=== PATIENT | female | born 1950 | race Caucasian/White ===

== ENCOUNTER 2016-04-28 11:24 | Day surgery (SDC) | payer MEDICARE, BC ==
--- NOTE | ~2016-04-28 | EGD ---
EGD REPORT [facility] [address] [address] NAME: AUDIE MAHAN : [birth year] STATUS : REG [facility] [place] PAT#: [id number] AGE: 66 ADM/REG DATE : 04/28/16 MR#: [id number] REPORT SERV DATE: 04/28/16 DICTATED BY: HANY HUDSON DATE: 04/28/16 REPORT STATUS : Draft [facility]ANS[facility]: [facility] DATE: 04/28/16 Endoscopy Center Patient Name: Audie Mahan Date of : 1950 Attending MD: HANY HUDSON MD Procedure Date No Time: 04/28/2016 Procedure: Colonoscopy Indications: Iron deficiency anemia, Last colonoscopy: 2007 Referring MD: RASHIDA OJEDA MD Medicines: See the Anesthesia note for documentation of the administered medications Complications: No immediate complications. Procedure: Pre-Anesthesia Assessment: - ASA Grade Assessment: II - A patient with mild systemic disease. After I obtained informed consent, the scope was passed under direct vision. Throughout the procedure, the patient's blood pressure, pulse, and oxygen saturations were monitored continuously. The [id number] was introduced through the anus and advanced to the terminal ileum, with identification of the appendiceal orifice and IC valve. The colonoscopy was performed without difficulty. The patient tolerated the procedure well. The quality of the bowel preparation was adequate. Findings: The perianal and digital rectal examinations were normal. Internal hemorrhoids were found during retroflexion and were small. A few diverticula were found in the sigmoid colon. A sessile polyp was found in the rectum. The polyp was small in size. The polyp was removed with a cold biopsy forceps. Resection and retrieval were complete. Impression: - Internal hemorrhoids. - Diverticulosis in the sigmoid colon. - One small polyp in the rectum. Resected and retrieved. Recommendation: - Patient has a contact number available for emergencies. The signs and symptoms of potential delayed complications were discussed with the patient. Return to normal activities tomorrow. Written discharge instructions were provided to the patient. - Regular diet. - Continue present medications. - Repeat colonoscopy for surveillance based on pathology EGD REPORT [address] [address] NAME: AUDIE MAHAN : [birth year] STATUS : REG [facility] [place] PAT#: [id number] AGE: 66 ADM/REG DATE : 04/28/16 MR#: [id number] REPORT SERV DATE: 04/28/16 DICTATED BY: HANY HUDSON DATE: 04/28/16 REPORT STATUS : Draft TRANSCRIBED BY: [employer] DATE: 04/28/16 results. - FOR YOUR BIOPSY RESULTS: Please go to [email or web address] and register to receive your results via the portal. Your biopsy results will be posted there in about 7 to 10 days. IF you do not see result in 10 days, call office. Procedure Code(s): --- Professional --- 87121, Colonoscopy, flexible, proximal to splenic flexure; with biopsy, single or multiple Diagnosis Code(s): --- Professional --- K64.8, Other hemorrhoids K57.30, Diverticulosis of large intestine without perforation or abscess without bleeding K62.1, Rectal polyp D50.9, Iron deficiency anemia, unspecified CPT copyright 2013 [employer]. All rights reserved. The codes documented in this report are preliminary and upon paraffin machine operator review may be revised to meet current compliance requirements. Hany Hudson MD HANY HUDSON MD 04/28/2016 2:00 PM This report has been signed electronically. Number of Addenda: 0 Note Initiated On: 04/28/2016 1:02 PM Scope Withdrawal Time 0 hours 8 minutes 0 seconds [address] [place] [id number]
--- NOTE | ~2016-04-28 | EGD ---
EGD REPORT [facility] [address] [address] NAME: AUDIE MAHAN : [birth year] [place] [facility] [place] [id number] AGE: 66 ADM/REG DATE : 04/28/16 MR#: [id number] REPORT SERV DATE: 04/28/16 DICTATED BY: HANY HUDSON DATE: 04/28/16 REPORT STATUS : Draft [facility]ED [facility]: [facility] DATE: 04/28/16 Endoscopy Center Patient Name: Audie Mahan Date of : 1950 Attending MD: HANY HUDSON MD Procedure Date No Time: 04/28/2016 Procedure: Upper GI endoscopy Indications: Iron deficiency anemia, Gastro-esophageal reflux disease Referring MD: RASHIDA OJEDA MD Medicines: See the Anesthesia note for documentation of the administered medications Complications: No immediate complications. Procedure: Pre-Anesthesia Assessment: - ASA Grade Assessment: II - A patient with mild systemic disease. After obtaining informed consent, the endoscope was passed under direct vision. Throughout the procedure, the patient's blood pressure, pulse, and oxygen saturations were monitored continuously. The GIF [id number] was introduced through the mouth, and advanced to the second part of duodenum. The upper GI endoscopy was accomplished without difficulty. The patient tolerated the procedure well. Findings: The 2nd part of the duodenum was normal. Biopsies were taken with a cold forceps for histology. The entire examined stomach was normal. A large 8 cm hiatal hernia with GEJ at 30 cm hiatus hernia was present. Impression: - Normal 2nd part of the duodenum. Biopsied. - Normal stomach. - Hiatus hernia. Recommendation: - Patient has a contact number available for emergencies. The signs and symptoms of potential delayed complications were discussed with the patient. Return to normal activities tomorrow. Written discharge instructions were provided to the patient. - Regular diet. - Continue present medications. - FOR YOUR BIOPSY RESULTS: Please go to [email or web address] and register to receive your results via the portal. Your biopsy results will be posted there in about 7 to 10 days. IF you do not see EGD REPORT [address] [address] NAME: AUDIE MAHAN : [birth year] [place]US : [place] [facility] [place] PAT#: [id number] AGE: 66 ADM/REG DATE : 04/28/16 MR#: [id number] REPORT SERV DATE: 04/28/16 DICTATED BY: HANY HUDSON DATE: 04/28/16 REPORT STATUS : Draft TRANSCRIBED BY: [employer] DATE: 04/28/16 result in 10 days, call office. Procedure Code(s): --- Professional --- 17271, Esophagogastroduodenoscopy, flexible, transoral; with biopsy, single or multiple Diagnosis Code(s): --- Professional --- K44.9, Diaphragmatic hernia without obstruction or gangrene D50.9, Iron deficiency anemia, unspecified K21.9, Gastro-esophageal reflux disease without esophagitis CPT copyright 2013 [employer]. All rights reserved. The codes documented in this report are preliminary and upon farm equipment operator review may be revised to meet current compliance requirements. Hany Hudson MD HANY HUDSON MD 04/28/2016 1:45 PM This report has been signed electronically. Number of Addenda: 0 Note Initiated On: 04/28/2016 1:06 PM Scope Withdrawal Time 0 hours 0 minutes 0 seconds
[~2016-04-28 11:24] MED LIST: ASAB PO; IRON OTC; LIPITOR20 PO; MAGOX4 PO; NEUR300 PO; NORV25 PO; PEP20 PO; PREV15 PO; PREV30 PO; VITAMIN B PO; VITAMIN B-122500 MCG SL; VITAMIN D31000 UNIT PO; ZESTRIL20 MG PO
== END 2016-04-28 23:59 | disposition home or self-care (01) ==
LOC: DMU 11:24
PROVIDERS: Internal Medicine Gastroenterology
PROC: 0DB98ZZ Excision of Duodenum, Via Natural or Artificial Opening Endoscopic (ICD-10-PCS; 2016-04-28)
PROC: 0DBP8ZZ Excision of Rectum, Via Natural or Artificial Opening Endoscopic (ICD-10-PCS; principal; 2016-04-28 13:00)
DX: K62.1 Rectal polyp (principal); K64.8 Other hemorrhoids; K57.30 Diverticulosis of large intestine without perforation or abscess without bleeding; D50.9 Iron deficiency anemia, unspecified; K44.9 Diaphragmatic hernia without obstruction or gangrene; K21.9 Gastro-esophageal reflux disease without esophagitis; I10 Essential (primary) hypertension; L92.0 Granuloma annulare; E78.00 Pure hypercholesterolemia, unspecified; M19.90 Unspecified osteoarthritis, unspecified site; Z90.722 Acquired absence of ovaries, bilateral; Z90.711 Acquired absence of uterus with remaining cervical stump; Z87.891 Personal history of nicotine dependence; Z98.890 Other specified postprocedural states; Z79.899 Other long term (current) drug therapy; Z79.82 Long term (current) use of aspirin
CPT/HCPCS: 88305